=== PATIENT | male | born 1930 | race Caucasian/White ===

== ENCOUNTER 2016-10-07 11:47 | Emergency (ER) | payer MEDICARE, MEDICAID ==
--- OUTSIDE RECORDS SUMMARY | 2016-10-07 12:08 | XMS REPORT | Continuity of Care Document ---
:1930 Author Organization [facility] ([facility]) Address [address] [place] [address] Phone [phone] Care Team Providers Name Role Phone Monique Maria Antonia Primary Care Provider [phone] Source Comments This disclosure is being made pursuant to the Care Everywhere program, applicable federal and state laws, and may not contain all informaitonavailable regarding this patient.[facility] ([facility]) Active Allergies and Adverse Reactions No Known Allergies Current Medications Prescription Sig. Disp. Refills Start Date End Date Status allopurinol 300 mg Take 300 mg Active tablet by mouth daily. multivitamin tablet Take 1 tablet Active by mouth daily. amiodarone 200 mg Take two 30 tablet 0 04/19/2016 Active tablet tablets twice a day until 04/24. After that take 1 tablet a day. aspirin 81 mg Take 1 tablet 11 04/19/2016 Active chewable tablet (81 mg total) by mouth daily. atorvastatin 40 mg Take 1 tablet 90 tablet 3 04/19/2016 Active tablet (40 mg total) by mouth daily. digoxin 62.5 mcg Take 1 tablet 90 tablet 3 04/19/2016 Active tablet (62.5 mcg total) by mouth daily. nitroglycerin 0.[address] 1 25 tablet 0 04/19/2016 Active SL tablet tablet (0.4 mg total) under the tongue every 5 minutes as needed for Chest pain (Per Protocol). Maximum of 3 tablets in 15 minutes. lisinopril 2.5 mg Take 1 tablet 90 tablet 3 04/20/2016 Active tablet (2.5 mg total) by mouth daily. warfarin 2 mg tablet Take 2 90 tablet 3 04/20/2016 Active tablets every evening until 04/25, than you will have new recommendatio ns. metoPROLol succinate Take 1 tablet 90 tablet 3 04/20/2016 Active 25 mg XL tablet (25 mg total) by mouth daily. ciprofloxacin HCl 07/02/2016 Active 500 mg tablet furosemide 80 mg Take 1 tab 45 tablet 3 10/02/2016 Active tablet (80 mg) in the AM and 1/2 tab (40 mg) at 1-2 pm. furosemide 80 mg Take 1 tablet 90 tablet 3 04/20/2016 10/02/2016 Discontinued tablet (80 mg total) by mouth daily. spironolactone 25 mg Take 0.5 30 tablet 3 07/03/2016 10/02/2016 Discontinued tablet tablets (12.5 mg total) by mouth daily. 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 Chronic systolic heart failure, ACC/AHA stage C 04/18/2016 Ischemic cardiomyopathy 04/18/2016 Paroxysmal atrial fibrillation 04/18/2016 Overview: s/p cardioversion (possibly in 2012), Thrombus of left atrial appendage 04/18/2016 Overview: Dx by RENETTA performed at [facility] on 04/10/16 - Records scanned to media tab Non-ST elevation myocardial infarction (NSTEMI), initial episode of care 04/14 Overview: Likely type II CKD (chronic kidney disease), stage III 04/14/2016 Acute on chronic systolic heart failure 04/14/2016 Atrial flutter 04/11/2016 Most Recent Encounters Date Type Specialty Providers Description 10/02/2016 Office Visit [facility] Dx: Ischemic S, DO cardiomyopathy (Primary Dx) Social History Tobacco Use Types Packs/Day Years Used Date Former Smoker Smokeless Tobacco: Current User Tobacco Cessation:Ready to Quit: No Comments: Last Filed Vital Signs Vital Sign Reading Time Taken Blood Pressure 124/60 10/02/2016 12:44 PM CDT Pulse 66 10/02/2016 12:44 PM CDT Temperature 36.9 C (98.4 F) 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 Respiratory Rate 18 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 Height 1.803 m (5' 10.98") 10/02/2016 12:44 PM CDT Weight 90.719 kg (200 lb) 10/02/2016 12:44 PM CDT Body Mass Index 27.91 10/02/2016 12:44 PM CDT Oxygen Saturation 95% 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 Plan of Care Date Type Specialty Providers Description 11/20/2016 Appointment [facility], Chief Comp: Patient DO Reported Reason For [address] [place] [address] [phone] (Fax) Health Maintenance Due Date Last Done Comments Hepatitis B Vaccine (1 of 3 - Primary Series) 1930 Tdap Vaccine 09/21/1943 Td Vaccine 1950 Colonoscopy 1982 Zoster Vaccine 1992 Pneumococcal Vaccine (1 of 2 - PCV13) 1997 Influenza Vaccine: Seasonal (Season Ended) 2016 Lipid Disorder Screening 04/11/2021 04/11/2016 Results from Last 3 Months Not on file
[2016-10-07] MEDS ORDERED: DIPHTH,PERTUSS(ACELL),TET VAC 0.5 ML VIAL IM ONE ×2 (12:19→12:45)
--- NOTE | 2016-10-07 12:20 | ERNOTE ---
Lower Extremity HPI - Narrative Date of Service: 10/07/16 - General Lower Extremities Pain: knee: left Time Seen by Provider: 10/07/16 11:58 Source: patient, RN notes reviewed Exam Limitations: other - Poor historian - Immun/Allergies/Home Medications Allergies/Adverse Reactions: Allergies Allergy/AdvReac Type Severity Reaction Status Date / Time No Known Allergies Allergy Verified 10/07/16 11:56 Home Medications: HOME MEDICATIONS Clotrimazole [Lotrimin Cream] 1 appl TP BID #30 gm 06/30/15 [Last Taken Unknown] Furosemide [Lasix] 60 mg PO BID #90 tablet 06/30/15 [Last Taken Unknown] - History of Present Illness Narrative: 86 y/o male ambulatory to the ED for left knee pain d/t a fall at home last week. He reports that the sole of his shoe was loose and became caught in the grass, causing him to trip. He also has an abrasion to his left elbow. He reports that he is on a blood thinner but denies hitting his head. He is unsure of when his last tetanus vaccination was given. Date (Duration): 10/03/16 Location of Incident: home Method of Injury: Reports: fell Reason for Fall: Reports: tripped Loss of Consciousness: Reports: no loss of consciousness Associated Symptoms: Denies: unable to bear weight, snapping, popping sensation Subsequent Symptoms: Denies: sensory loss, numbness, motor loss Prior Treament: Denies: recently seen Review of Systems - Review of Systems Constitutional: Absent: recent illness, malaise EYE: Present: no symptoms reported ENT: Present: no symptoms reported Respiratory: Absent: shortness of breath, cough Cardiology: Present: edema. Absent: chest pain Gastrointestinal/Abdominal: Absent: nausea, vomiting, abdominal pain Genitourinary: Present: no symptoms reported Musculoskeletal: Present: muscle pain, joint pain, joint swelling Skin: Present: change in color. Absent: rash, lesions Neurological: Absent: headache, dizziness/light-headedness, weakness, numbness, tingling Endocrine: Present: no symptoms reported Hematologic/Lymphatic: Present: easy bruising, easy bleeding Psych: Present: no symptoms reported - Patient's Past Medical History Patient History - Medical: Arthritis Patient History - Cardiac/Respiratory: Atrial Fibrillation, CHF, Hypertension, Hyperlipidemia Patient History - Cancer: No Hx of Cancer Patient History - Surgical Procedures: Other Patient History - Other: None - Social History Living Situations: home Alcohol Use: none Drug Use: none Physical Exam - Physical Exam General Appearance: Present: wd/wn, alert, no apparent distress Respiratory: Present: no respiratory distress, no accessory muscle use Cardiovascular/Chest: Present: normal peripheral pulses Extremity Exam: Present: normal range of motion, joint redness - Left knee, joint swelling - Left knee, extremity edema - Left lower leg Neurological Exam: Present: alert, oriented, normal mood/affect, no motor/ sensory deficits Skin Exam: Present: warm/dry, other - ecchymosis to left anterior knee with surrounding erythema, healing abrasion to left elbow ED Progress - Vital Signs Vital Signs: Vital Signs 10/07/16 11:48 Temperature 36.6 C Pulse Rate 83 Respiratory 12 Rate Blood Pressure 135/76 O2 Sat by Pulse 96 Oximetry - X-Ray X-Ray #1 X-Ray: knee Interpretation: Reviewed by me X-ray Comments: Technique: 3 views of the left knee obtained. Findings: There is anterior soft tissue swelling. Alignment is within normal limits. There is narrowing of the medial joint space compartment. There is osteophyte formation. No fractures identified. There are vascular calcifications. IMPRESSION: ARTHRITIC CHANGES. ANTERIOR SOFT TISSUE SWELLING. NO ACUTE OSSEOUS PATHOLOGY IDENTIFIED. Electronically signed by Leander Dacosta M.D.. - Progress/Reassessment Chief Complaint: Lower Extremity Pain/ Injury Procedures Pre-Proc Neuro Vasc Exam: normal Pre-Made Type: knee immobilizer Alignment good: Yes Splint applied by: Nurse Post-Proc Neuro Vasc Exam: normal Complications: Pt haider procedure well Departure Clinical Impression: Knee contusion Qualifiers: Encounter type: initial encounter Laterality: left Qualified Code(s): S80.02XA - Contusion of left knee, initial encounter - Departure Disposition: Home Follow Up Needed Condition: Stable Instructions: Contusion, [id number] Additional Instructions: Continue your current medications OK to take Tylenol for pain See your doctor in 2 days to recheck knee Wear immobilizer to keep knee straight Referrals: Maria Antonia Amaya MD [Primary Care Provider] -
[2016-10-07 13:03] VITALS: BP 114/65
[2016-10-07 13:34] LABS: Hematocrit 31.4 % (42.0-52.0); Hemoglobin 10.4 gm/dL (13.5-18.0); Mean Cell Volume 102.3 fl (78-100); Mean Corpuscular Hemoglobin 33.9 pg (27-31); Mean Corpuscular Hgb Conc 33.1 g/dl (32-36); Mean Platelet Volume 10.4 fl (6.0-9.5); Neutrophil # 4.8 K/mm3 (1.3-6.0); Neutrophil % 71.1 % (42-75.0); Platelet Count 202 K/mm3 (150-450); Red Blood Count 3.07 M/mm3 (4.7-6.0); Red Cell Distribution Width 16.8 % (11.5-14.0); White Blood Count 6.8 K/mm3 (4.0-10.5)
[2016-10-07 13:42] LABS: Prothrombin Time (Patient) 26.2 Seconds (9.4-11.4)
[2016-10-07 13:44] LABS: INR 2.52 INR (0.90-1.10)
[2016-10-07 13:54] LABS: Albumin * 4.1 gm/dl (3.4-5.0); Anion Gap 12.9 mmol/L (6.8-13.8); BUN/Creatinine Ratio 17.7 (9.0-21.6); CRP 3.4 mg/dL (0.0-0.9); Calcium * 9.4 mg/dL (7.9-10.9); Carbon Dioxide 27.7 mmol/L (24-32.6); Potassium 4.6 mmol/L (3.4-4.6); Total Protein 8.3 gm/dL (6.2-8.2)
== END 2016-10-07 14:58 | disposition home or self-care (01) ==
LOC: ER 11:47
PROC: 2W3MX1Z Immobilization of Left Lower Extremity using Splint (ICD-10-PCS; principal; 2016-10-07)
DX: S80.02XA Contusion of left knee, initial encounter (principal); W01.0XXA Fall on same level from slipping, tripping and stumbling without subsequent striking against object, initial encounter; Y93.9 Activity, unspecified; Y92.007 Garden or yard of unspecified non-institutional (private) residence as the place of occurrence of the external cause; Z23 Encounter for immunization; I48.91 Unspecified atrial fibrillation; Z79.01 Long term (current) use of anticoagulants; I10 Essential (primary) hypertension; S50.312A Abrasion of left elbow, initial encounter

== ENCOUNTER 2020-08-25 00:29 | Observation (INO) ==
[2020-08-25 01:05] LABS: Hematocrit 31.3 % (42.0-52.0); Hemoglobin 9.8 gm/dL (13.5-18.0); Mean Cell Volume 101.6 fl (78-100); Mean Corpuscular Hemoglobin 31.8 pg (27-31); Mean Corpuscular Hgb Conc 31.3 g/dl (32-36); Mean Platelet Volume 11.4 fl (8-11.3); Neutrophil # 5.4 K/mm3 (1.3-6.0); Platelet Count 176 K/mm3 (150-450); Red Blood Count 3.08 M/mm3 (4.7-6.0); White Blood Count 7.2 K/mm3 (4.0-10.5)
[2020-08-25 01:17] LABS: Prothrombin Time (Patient) 20.8 Seconds (9.1-10.7)
[2020-08-25 01:20] LABS: INR 2.07 INR (0.92-1.08)
[2020-08-25] MEDS ORDERED: ACETAMINOPHEN 500 MG TABLET PO ONE (01:31)
[2020-08-25 01:33] LABS: ALT 109 U/L (19-67); AST 44 U/L (0-48); Albumin * 2.9 gm/dl (3.4-5.0); Alkaline Phosphatase * 110 U/L (50-170); Anion Gap 16.1 mmol/L (6.8-13.8); BNP * Greater than 35000 pg/mL (5-650); BUN/Creatinine Ratio 18.4 (9.0-21.6); Bilirubin, Total 0.8 mg/dL (0.0-1.1); Blood Urea Nitrogen 43 mg/dL (6-23); CK Total * 60 U/L (0-259); CKMB 1.8 ng/mL (0.0-9.0); Ca. Corrected For Albumin 9.5 mg/dL (8.4-10.2); Calcium * 8.9 mg/dL (7.9-10.9); Carbon Dioxide 22.9 mmol/L (24-32.6); Chloride 103 mmol/L (97-106); Glucose * 101 mg/dL (70-110); Sodium 137 mmol/L (132-142); Total Protein 6.6 gm/dL (6.2-8.2)
[2020-08-25 01:34] LABS: Troponin I 0.061 ng/mL (0.00-0.10)
--- NOTE | 2020-08-25 02:40 | ERNOTE ---
Dyspnea - Date Date of Service: 08/25/20 - General Presenting Symptoms: other - Volume overloaded lower extremity edema difficulty breathing Time Seen by Provider: 08/25/20 00:54 Source: patient, family Exam Limitations: no limitations - Immun/Allergies/Home Medications Immunizations: IMMUNIZATION HX Immunizations Up to Date Yes History of Influenza Vaccine More Information Required Hx Pneumococcal Vaccination More Information Required Allergies/Adverse Reactions: Allergies No Known Allergies Allergy (Verified 08/25/20 01:02) Home Medications: HOME MEDICATIONS Allopurinol [Zyloprim] 300 mg PO DAILY 08/18/17 [Last Taken Unknown] Atorvastatin Calcium 40 mg PO HS 08/18/17 [Last Taken Unknown] Furosemide [Lasix] 80 mg PO DAILY 08/18/17 [Last Taken Unknown] Metoprolol Succinate [Toprol Xl] 25 mg PO DAILY 08/18/17 [Last Taken 08/19/20 09:00] Ferrous Sulfate [Iron] 325 mg PO DAILY 08/21/20 [Last Taken Unknown] Multivitamin 1 ea PO DAILY 08/21/20 [Last Taken Unknown] Nitroglycerin 0.4 mg SL prn PRN 08/21/20 [Last Taken Unknown] Pantoprazole Sodium [Protonix] 40 mg PO DAILY 08/21/20 [Last Taken Unknown] Potassium Chloride [K-Dur] 20 meq PO DAILY 08/21/20 [Last Taken Unknown] Warfarin Sodium 4 mg PO DAILY 08/25/20 [Last Taken Unknown] - History of Present Illness Narrative: Patient is a 89-year-old male presented to emergency room accompanied by her daughter after getting discharged from [facility] after being admitted for 3 days. Patient was transferred initially from our hospital to [place] to a high level of care for controlling patient's congestive heart failure. Unfortunately patient was discharged home without significant changes and improvement in his clinical condition and daughter also was confused that why she he got discharged. Patient and daughter they were really concerned and he did not know what to do and they were also really tired of being transferred and having multiple emergency room's visits. I talked to them I reviewed the patient's chart and found out that patient has been evaluated in [facility] cardiology services multiple times and patient's specialty doctors are in [place]. Patient and daughter they both would like patient to be transferred to the emergency room in [place] I personally called [place] [facility] and talk to Dr. call manager in emergency room and transfer center and unfortunately the emergency room is very busy and they also have a hard time seeing their own patients and patient will not have any bed available as there is no availability at this moment in the [facility]. I explained that patient is not emergent or urgent but he would definitely need to get admitted to the [facility] services and get specialty care li cardiology will and or electrophysiology We got patient on direct admit waiting list and I notified patient's family and they both agreed to the plan. I talked to our hospitalist and he kindly accepted to have patient hospital for diuresis I personally really appreciate his understanding in his care. 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 history of leg surgery Family History: Family History (Last Reviewed 08/25/20 @ 01:02 by Nerissa Fox) Father Hypertension Other Heart disease Social History: (Last Reviewed 08/25/20 @ 01:02 by Nerissa Fox) Social History: Marital status: / lives independently: No household members: children current occupational status: retired Highest level of school completed/degree received: 7th grade Service: No Tobacco: Smoking Status: Current every day smoker tobacco type: smokeless tobacco Alcohol: alcohol intake: current alcohol intake frequency: holiday/special occasion Substance Use: substance use type: does not use Physical Exam - Physical Exam General Appearance: Present: wd/wn, alert, mild distress Head Exam: Present: no evidence of injury Eye Exam: Normal inspection: bilateral, PERRL: bilateral, EOMI: bilateral Ears, Nose, Throat: Present: normal ENT inspection, dry mucous membranes Neck: Present: normal inspection, nontender Respiratory: Present: normal breath sounds, no accessory muscle use, chest nontender, lungs clear, crackles - Very minimal generalized gross crackle which is chronic finding for the patient. Absent: no respiratory distress Cardiovascular/Chest: Present: no murmur, normal peripheral pulses, irregularly irregular, systolic murmur - 2 out of 4 holosystolic murmur over the mitral. Absent: regular rate, rhythm Peripheral Pulses: N=norm/S=strong/W=weak/B=bound/A=absent: Carotid (R): Normal, Carotid (L): Normal, Dorsalis-pedis (R): Weak, Dorsalis-pedis (L): Weak Gastrointestinal/Abdominal: Present: normal bowel sounds, nontender, nondistended, soft, no organomegaly Back Exam: Present: normal inspection, normal range of motion, no CVA tenderness, no vertebral tenderness Extremity Exam: Present: normal inspection, non-tender, normal range of motion, pedal edema. Absent: no edema Neurological Exam: Present: alert, oriented, normal mood/affect Skin Exam: Present: warm/dry. Absent: cool/dry Lymphatic Exam: Present: no adenopathy Progress - Date and Time Seen: Date and Time: 08/25/20 06:28 Diuresis started for the patient I personally discussed the plan with the patient Patient definitely would meet criteria for hospice and I would definitely like the hospice nurse or hospice staff here discussed the case here with the patient and offered this option. Patient is unfortunately end-stage congestive heart failure and patient CODE STATUS is no intubation no PEG tube for long-term feeding and only chest compression with one time try. - Vital Signs Vital Signs: Vital Signs 08/25/20 00:35 08/25/20 00:37 08/25/20 01:00 Temperature 36.6 C Pulse Rate 88 94 92 Respiratory Rate 25 H 26 H Blood Pressure 108/73 118/88 O2 Sat by Pulse Oximetry 99 100 08/25/20 01:39 Temperature Pulse Rate 85 Respiratory Rate 24 H Blood Pressure 107/74 O2 Sat by Pulse Oximetry 98 - Progress/Reassessment Chief Complaint: Dyspnea Plan - Plan Plan: Observation and diuresis in the hospital. Patient will get [facility] as patient is in waiting list for direct admit. Departure Clinical Impression: Acute exacerbation of congestive heart failure Qualifiers: Heart failure type: unspecified Qualified Code(s): I50.9 - Heart failure, unspecified - Departure Disposition: Still a patient Condition: Stable
[2020-08-25] MEDS ORDERED: FUROSEMIDE 10 MG/ML VIAL IV ONE ×3 (03:10→16:00)
[2020-08-25 06:32] LABS: Anion Gap 12.5 mmol/L (6.8-13.8); BUN/Creatinine Ratio 19.8 (9.0-21.6); Calcium * 8.9 mg/dL (7.9-10.9); Carbon Dioxide 23.3 mmol/L (24-32.6); Estimated Creat Clear 25.2; Potassium 4.8 mmol/L (3.4-4.6)
--- NOTE | 2020-08-25 13:06 | HP ---
Chief Complaint - Chief Complaint Date of Service: 08/25/20 Time of Service: 08:30 Chief Complaint: Weak, short of breath, leg swelling History of Present Illness: Jignesh is an 89 yo male who presents to the [facility] ER with continued sh ortness of breath and weakness. He was discharged from [facility] on the same day that he presented to the [facility] ER. He told the ER he wanted transferred to [facility] for lasix drip. He reports he has had this before and it drains off all of his fluid and fixes his sodium and he does well. He admits that he goes home and must have had too much sodium and it all came back. He was just inpatient at [facility] and diuresed and told that he needed to go home and continue his oral lasix. He says that won't work. Review of records show hospitalist spoke with patient and daughter about end of life care with his severe heart failure. EF of 10-15%. He has long standing atrial fibrillation and is on a pacemaker. ER contacted [facility] who reportedly accepted transfer but report no open beds and requested he be admitted here until a bed becomes available. He is not hypoxic and vitals are normal. Chest xray shows small pleural effusions but no significant pulmonary congestion. 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 History of pacemaker history of leg surgery Family History: Family History (Last Reviewed 08/25/20 @ 01:02 by Nerissa Fox) Father Hypertension Other Heart disease Social History: (Last Reviewed 08/25/20 @ 01:02 by Nerissa Fox) Social History: Marital status: / lives independently: No household members: children current occupational status: retired Highest level of school completed/degree received: 7th grade Service: No Tobacco: Smoking Status: Current every day smoker tobacco type: smokeless tobacco Alcohol: alcohol intake: current alcohol intake frequency: holiday/special occasion Substance Use: substance use type: does not use Review Of Systems (GEN) - Review of Systems Generalized/Overall Review: Present: Weakness, Fatigue, Weight gain. Absent: Chills, Fever EENTM: Present: No Symptoms Reported Respiratory: Present: Cough, Shortness of Breath, Orthopnea Cardiac: Present: Edema. Absent: Chest Pain, Palpitations, Syncope Abdominal: Absent: Nausea, Vomiting Genitourinary: Present: No Symptoms Reported Musculoskeletal: Present: No Symptoms Reported Neurological: Present: Anxiety, Weakness Skin: Absent: Lumps, Rash Endocrine: Present: No Symptoms Reported Immunizations: IMMUNIZATION HX Immunizations Up to Date Yes History of Influenza Vaccine More Information Required Hx Pneumococcal Vaccination More Information Required Allergies/Adverse Reactions: Allergies Allergy/AdvReac Type Severity Reaction Status Date / Time No Known Allergies Allergy Verified 08/25/20 01:02 Home Medications: HOME MEDICATIONS Allopurinol [Zyloprim] 300 mg PO DAILY 08/18/17 [Last Taken Unknown] Atorvastatin Calcium 40 mg PO HS 08/18/17 [Last Taken Unknown] Furosemide [Lasix] 80 mg PO DAILY 08/18/17 [Last Taken Unknown] Ferrous Sulfate [Iron] 325 mg PO DAILY 08/21/20 [Last Taken Unknown] Multivitamin 1 ea PO DAILY 08/21/20 [Last Taken Unknown] Nitroglycerin 0.4 mg SL prn PRN 08/21/20 [Last Taken Unknown] Pantoprazole Sodium [Protonix] 40 mg PO DAILY 08/21/20 [Last Taken Unknown] Potassium Chloride [K-Dur] 20 meq PO DAILY 08/21/20 [Last Taken Unknown] Warfarin Sodium 4 mg PO 1400 08/25/20 [Last Taken Unknown] Exam - Exam Vital Signs: Vital Signs - Last Taken Temp 37.4 C 08/25/20 11:21 Pulse 90 08/25/20 11:21 Resp 18 08/25/20 11:21 BP 90/66 08/25/20 11:21 Pulse Ox 98 08/25/20 11:21 Constitutional: Present: Alert, Oriented x3, Cooperative, No distress ENT Exam: Present: hearing grossly normal Eye Exam: bilateral eye: normal inspection Respiratory: Present: no respiratory distress, crackles Cardiovascular/Chest: Present: no murmur, irregularly irregular Peripheral Pulses: radial (R): 2+, radial (L): 2+ Abdomen: Present: Normal bowel sounds, soft, nontender, nondistended Extremity: Present: normal inspection Skin Exam: Present: normal color, warm/dry, no cyanosis Appearance: Present: appropriate appearance, appropriate insight Eye contact: Present: cooperative, good eye contact, normal speech Thoughts: Present: normal thought pattern, no apparent hallucination Diagnostic Studies: Abnormal Lab Results 08/25/20 08/25/20 08/25/20 Range/Units 00:50 00:50 00:50 RBC 3.08 L (4.7-6.0) M/mm3 Hgb 9.8 L (13.5-18.0) gm/dL Hct 31.3 L (42.0-52.0) % MCV 101.6 H (78-100) fl MCH 31.8 H (27-31) pg MCHC 31.3 L (32-36) g/dl RDW 20.0 H (11.5-14.0) % MPV 11.4 H (8-11.3) fl Lymphocytes % 12.2 L (20-51) % Monocytes % 10.6 H (0.0-9) % Lymphocytes # 0.88 L (1.5-3.5) k/mm3 PT 20.8 H (9.1-10.7) Seconds INR (Anticoag Therapy) 2.07 H (0.92-1.08) INR PTT ([place]) 36.0 H (24-32) Seconds Potassium 5.0 H (3.4-4.6) mmol/L Carbon Dioxide 22.9 L (24-32.6) mmol/L Anion Gap 16.1 H (6.8-13.8) mmol/L BUN 43 H (6-23) mg/dL Creatinine 2.34 H (0.4-1.4) mg/dL Est GFR (Non-Af Amer) 28 L (60-130) mL/min ALT 109 H (19-67) U/L B-Natriuretic [place] [address] H (5-650) pg/mL Albumin 2.9 L (3.4-5.0) gm/dl 08/25/20 Range/Units 06:05 RBC (4.7-6.0) M/mm3 Hgb (13.5-18.0) gm/dL Hct (42.0-52.0) % MCV (78-100) fl MCH (27-31) pg MCHC (32-36) g/dl RDW (11.5-14.0) % MPV (8-11.3) fl Lymphocytes % (20-51) % Monocytes % (0.0-9) % Lymphocytes # (1.5-3.5) k/mm3 PT (9.1-10.7) Seconds INR (Anticoag Therapy) (0.92-1.08) INR PTT ([place]) (24-32) Seconds Potassium 4.8 H (3.4-4.6) mmol/L Carbon Dioxide 23.3 L (24-32.6) mmol/L Anion Gap (6.8-13.8) mmol/L BUN 45 H (6-23) mg/dL Creatinine 2.27 H (0.4-1.4) mg/dL Est GFR (Non-Af Amer) 29 L (60-130) mL/min ALT (19-67) U/L B-Natriuretic Peptide (5-650) pg/mL Albumin (3.4-5.0) gm/dl Laboratory Results WBC 7.2 K/mm3 (4.0-10.5) 08/25/20 00:50 RBC 3.08 M/mm3 (4.7-6.0) L 08/25/20 00:50 Hgb 9.8 gm/dL (13.5-18.0) L 08/25/20 00:50 Hct 31.3 % (42.0-52.0) L 08/25/20 00:50 MCV 101.6 fl (78-100) H 08/25/20 00:50 MCH 31.8 pg (27-31) H 08/25/20 00:50 MCHC 31.3 g/dl (32-36) L 08/25/20 00:50 RDW 20.0 % (11.5-14.0) H 08/25/20 00:50 Plt Count 176 K/mm3 (150-450) 08/25/20 00:50 MPV 11.4 fl (8-11.3) H 08/25/20 00:50 Immature Gran % (Auto) 0.40 % (0.001-0.429) 08/25/20 00:50 Immature Gran # (Auto) 0.03 K/mm3 (0.000-0.0310) 08/25/20 00:50 Neutrophils % 75.0 % (42-75.0) 08/25/20 00:50 Lymphocytes % 12.2 % (20-51) L 08/25/20 00:50 Monocytes % 10.6 % (0.0-9) H 08/25/20 00:50 Eosinophils % 1.4 % (0.0-3.0) 08/25/20 00:50 Basophils % 0.4 % (0.0-1.0) 08/25/20 00:50 Nucleated RBC % 0.0 k/mm3 (0-1) 08/25/20 00:50 Neutrophils # 5.4 K/mm3 (1.3-6.0) 08/25/20 00:50 Lymphocytes # 0.88 k/mm3 (1.5-3.5) L 08/25/20 00:50 Monocytes # 0.8 k/mm3 (0.0-1.0) 08/25/20 00:50 Eosinophils # 0.1 k/mm3 (0.0-0.7) 08/25/20 00:50 Absolute Basophils 0.0 k/mm3 (0.0-0.1) 08/25/20 00:50 PT 20.8 Seconds (9.1-10.7) H 08/25/20 00:50 INR (Anticoag Therapy) 2.07 INR (0.92-1.08) H 08/25/20 00:50 PTT ([place]) 36.0 Seconds (24-32) H 08/25/20 00:50 Sodium 136 mmol/L (132-142) 08/25/20 06:05 Plasma Sodium 136 mmol/L (130-142) 08/25/20 06:05 Potassium 4.8 mmol/L (3.4-4.6) H 08/25/20 06:05 Chloride 105 mmol/L (97-106) 08/25/20 06:05 Carbon Dioxide 23.3 mmol/L (24-32.6) L 08/25/20 06:05 Anion Gap 12.5 mmol/L (6.8-13.8) 08/25/20 06:05 BUN 45 mg/dL (6-23) H 08/25/20 06:05 Creatinine 2.27 mg/dL (0.4-1.4) H 08/25/20 06:05 Est GFR (Non-Af Amer) 29 mL/min (60-130) L 08/25/20 06:05 BUN/Creatinine Ratio 19.8 (9.0-21.6) 08/25/20 06:05 Random Glucose 108 mg/dL (70-110) 08/25/20 06:05 Calcium 8.9 mg/dL (7.9-10.9) 08/25/20 06:05 Calcium Adj for Albumin 9.5 mg/dL (8.4-10.2) 08/25/20 00:50 Total Bilirubin 0.8 mg/dL (0.0-1.1) 08/25/20 00:50 AST 44 U/L (0-48) 08/25/20 00:50 ALT 109 U/L (19-67) H 08/25/20 00:50 Alkaline Phosphatase 110 U/L (50-170) 08/25/20 00:50 Creatine Kinase 60 U/L (0-259) 08/25/20 00:50 CK-MB (CK-2) 1.8 ng/mL (0.0-9.0) 08/25/20 00:50 CK-MB (CK-2) Rel Index 3.0 (0.0-3.6) 08/25/20 00:50 Troponin I 0.061 ng/mL (0.00-0.10) 08/25/20 00:50 B-Natriuretic Peptide Greater [place] 86133 pg/mL (5-650) H 08/25/20 00:50 Total Protein 6.6 gm/dL (6.2-8.2) 08/25/20 00:50 Albumin 2.9 gm/dl (3.4-5.0) L 08/25/20 00:50 SARS-CoV-2 (PCR) Not detected (NotDetected) 08/25/20 03:25 Assessment/Plan - Narrative Narrative: Jignesh is an 89 yo male with chronic systolic CHF. He presented to the ER with shortness of breath. He requested transfer to [facility] and was accepted but there are no beds available. ER requested he be admitted her until a bed is available. On evaluation I do not see evidence of acute exacerbation. There is no hypoxia and vitals are stable. His systolic heart failure is severe with EF of 10-15%. I believe he is in a chronic condition and needs to continue diuretics, avoid sodium, and stay active. He wants [facility] to give him a lasix drip to fix him. Discussed with him that with his heart condition there is no magical fix. Will wait to see if [facility] has a bed opening, but he does not meet acute criteria for admission here and will be discharged to home later today unless a bed becomes available for transfer. I will give him a dose of IV lasix to see if this helps with his shortness of breath, but I suspect this may be his baseline as he is not hypoxic and chest xray does not show significant fluid present. Will admit to observation. - Assessment/Plan (1) Chronic systolic CHF (congestive heart failure) Problem: Chronic (2) Atrial fibrillation Problem: Chronic Qualifiers: Atrial fibrillation type: longstanding persistent Qualified Code(s): I48.11 - Longstanding persistent atrial fibrillation
[2020-08-25] MEDS: POTASSIUM CHLORIDE 20 MEQ TABLET.SA PO SCH (13:56)
[2020-08-25] MEDS: WARFARIN SODIUM 4 MG TABLET PO SCH (16:43)
[2020-08-26] MEDS: POTASSIUM CHLORIDE 20 MEQ TABLET.SA PO SCH (08:25)
[2020-08-26] MEDS ORDERED: FUROSEMIDE 10 MG/ML VIAL IV ONE (08:57)
[2020-08-26 09:33] LABS: Albumin * 2.7 gm/dl (3.4-5.0); Anion Gap 15.7 mmol/L (6.8-13.8); BUN/Creatinine Ratio 21.7 (9.0-21.6); Ca. Corrected For Albumin 9.5 mg/dL (8.4-10.2); Calcium * 8.8 mg/dL (7.9-10.9); Carbon Dioxide 23.8 mmol/L (24-32.6); Potassium 4.5 mmol/L (3.4-4.6); Total Protein 5.8 gm/dL (6.2-8.2)
[2020-08-26] MEDS: WARFARIN SODIUM 4 MG TABLET PO SCH (16:35)
[2020-08-26 17:28] VITALS: BP 120/62
--- NOTE | 2020-08-28 21:47 | DS ---
Transfer Discharge Summary - Diagnosis(s)/Problems (1) Acute exacerbation of congestive heart failure Problem: Acute (2) Chronic systolic CHF (congestive heart failure) Problem: Chronic (3) Atrial fibrillation Problem: Chronic - Course Description of Stay: Jignesh was admitted for acute on chronic systolic CHF. He has known EF of 10- 15%. He has shortness of breath and significant edema. He was accepted to transfer from [facility] ER to [facility] but there were no beds available. He was admitted here until a bed became available. He was given IV lasix 80mg BID but had to closely monitor blood pressure as his systolic BP has been near 90. A bed became available at [facility] and he was transferred. Procedures Performed: none - Medications Medications: Active Medications Discontinued Medications Furosemide (Furosemide 10 Mg/Ml Vial) 80 mg IV ONCE ONE Stop: 08/25/20 03:11 Last Admin: 08/25/20 03:27 Dose: 80 mg Documented by: Furosemide (Furosemide 10 Mg/Ml Vial) 80 mg IV ONCE ONE Stop: 08/25/20 09:34 Last Admin: 08/25/20 10:10 Dose: 80 mg Documented by: Furosemide (Furosemide 10 Mg/Ml Vial) 80 mg IV ONCE ONE Stop: 08/25/20 16:01 Last Admin: 08/25/20 16:52 Dose: 80 mg Documented by: Furosemide (Furosemide 10 Mg/Ml Vial) 80 mg IV ONCE ONE Stop: 08/26/20 08:58 Last Admin: 08/26/20 09:28 Dose: 80 mg Documented by: Potassium Chloride (Potassium Chloride 20 Meq Tablet.Sa) 20 meq PO DAILY [facility] Stop: 09/24/20 13:01 Last Admin: 08/26/20 08:25 Dose: 20 meq Documented by: Warfarin Sodium (Warfarin Sodium 4 Mg Tablet) 4 mg PO DAILY@1700 [facility] Stop: 09/24/20 17:01 Last Admin: 08/26/20 16:35 Dose: 4 mg Documented by: - Disposition Disposition: Short Term Hospital Inpatient Condition: Stable Discharge Date: 08/26/20
== END 2020-08-26 17:05 | disposition short-term general hospital (02) ==
LOC: MS 00:29 → ER 00:29 → MS 04:45
PROVIDERS: ADMIT Family Medicine; ATTEND Family Medicine